=== PATIENT | female | born 1970 | race Caucasian/White ===

== ENCOUNTER 2018-05-08 20:52 | Inpatient (IN) | END 2018-05-25 21:39 | DRG 228 ==

== ENCOUNTER 2018-06-22 09:53 | Inpatient (IN) | payer OTHER ==
[~2018-06-22] VITALS: Ht 152.4 cm; Wt 79.6 kg
[~2018-06-22 09:53] MED LIST: AMOX1TAB10 PO; ASPI-817 PO; GLIP10TA14 PO; LISI10TA2 PO; METF100010 PO; PROM5SYR2 PO
[2018-06-22] MEDS ORDERED: ONDANSETRON 4 MG INJ IV STA ×2 (11:50→18:06)
[2018-06-22] MEDS ORDERED: POTASSIUM CHLORIDE (SR) 20 MEQ TAB PO STA (14:54)
[2018-06-22] MEDS ORDERED: LEVOFLOXACIN 750MG/D5W (PMX) 150 ML IVPB STA (14:54)
[2018-06-22] MEDS ORDERED: SODIUM CHLORIDE 0.9% 1L BAG IV* STA (14:54)
[2018-06-22] MEDS ORDERED: POTASSIUM CHLORIDE 100 ML IVPB ONE (15:00)
[2018-06-22] MEDS ORDERED: MAGNESIUM SULFATE 1 GM/D5W 100 ML IVPB ONE (16:00)
--- NOTE | 2018-06-22 16:28 | ERD ---
ER Documentation Chief Complaint Chief Complaint NAUSEA AND VOMITING X 4 DAYS HPI This is a 48-year-old female presents for evaluation of nausea, vomiting as well as a cough. She states that she was recently diagnosed with a pneumonia, however she is not on antibiotics, she denies any chest pain or shortness of breath, but she does have a recent history of a CABG 1 month ago. States that she has generally been feeling unwell, she denies any urinary symptoms. ROS All systems reviewed and are negative except as per history of present illness. Medications Home Meds Reported Medications Metformin Hcl* (Metformin Hcl*) 1,000 Mg Tablet, 1000 MG PO WITH BREAKFAST DINNE, #60 TAB 05/08/18 Amoxicillin/Potassium Clav (Amox-Clav 875-125 mg Tablet) 875-125 mg Tab, 1 TAB PO BID, #20 TAB 05/08/18 Lisinopril* (Lisinopril*) 10 Mg Tablet, 10 MG PO DAILY, #30 TAB 05/08/18 Aspirin* (Aspirin* EC) 81 Mg Tablet.dr, 81 MG PO DAILY, TAB 05/08/18 Glipizide* (Glipizide*) 10 Mg Tablet, 20 MG PO BID, TAB 05/08/18 Promethazine HCl/Codeine (Prometh-Codein 6.25-10 mg/5 ml) 5 Ml Syrup, 5 ML PO Q6 PRN for COUGH 05/08/18 Allergies Allergies: Coded Allergies: No Known Allergy (Unverified , 05/08/18) PMhx/Soc History of Surgery: Yes (recent cardiac cath. and CABG x 3) Anesthesia Reaction: No Hx Neurological Disorder: Yes Hx Respiratory Disorders: Yes (Hospital acquired PNA; SOB) Hx Cardiac Disorders: Yes (HTN;NSTEMI w/ 3 vessels CAD; acute diastolic heart failure) Hx Psychiatric Problems: No Hx Miscellaneous Medical Probl: Yes (Htn, DM, obesity) Hx Alcohol Use: No Hx Substance Use: No Hx Tobacco Use: Yes Smoking Status: Former smoker Physical Exam Vitals Vital Signs Date Temp Pulse Resp B/P (MAP) Pulse Ox O2 O2 Flow FiO2 Time Delivery Rate 06/22/18 91 132/81 100 Room Air 15:45 (98) 06/22/18 97 149/100 100 Room Air 14:00 (116) 06/22/18 92 18 106/66 93 Room Air 13:00 (79) 06/22/18 98.3 99 18 137/77 100 09:56 (97) Physical Exam Const: Uncomfortable appearing Head: Atraumatic Eyes: Normal Conjunctiva ENT: Normal External Ears, Nose and Mouth. Neck: Full range of motion. No meningismus. Resp: Clear to auscultation bilaterally Cardio: Regular rate and rhythm, no murmurs Abd: Soft, mild epigastric tenderness, non distended. Normal bowel sounds Skin: No petechiae or rashes Back: No midline or flank tenderness Ext: No cyanosis, or edema Neur: Awake and alert Psych: Normal Mood and Affect Result Diagram: 06/22/18 1231 06/22/18 1415 Results 24 hrs Laboratory Tests Test 06/22/18 12:25 06/22/18 12:31 06/22/18 13:15 06/22/18 14:15 Urine Color RED Urine Clarity SLIGHTLY CLOUDY Urine pH 8.0 Urine Specific 1.016 [place] Urine Ketones TRACE mg/dL Urine Nitrite NEGATIVE mg/dL Urine Bilirubin NEGATIVE mg/dL Urine Urobilinogen NEGATIVE mg/dL Urine Leukocyte 1+ Rand/ul Esterase Urine Microscopic 2 /HPF RBC Urine Microscopic 36 /HPF WBC Urine Squamous MANY /HPF Epithelial Cells Urine Bacteria FEW /HPF Urine Hemoglobin NEGATIVE mg/dL Urine Glucose 3+ mg/dL Urine Total 2+ mg/dl Protein White Blood Count 8.2 10^3/ul Red Blood Count 4.61 10^6/ul Hemoglobin 12.1 g/dl Hematocrit 37.0 % Mean Corpuscular 80.3 fl Volume Mean Corpuscular 26.2 pg Hemoglobin Mean Corpuscular 32.7 g/dl Hemoglobin Concent Red Cell 13.5 % Distribution Width Platelet Count 620 10^3/UL Mean Platelet 9.8 fl Volume Immature 0.500 % Granulocytes % Neutrophils % 71.6 % Lymphocytes % 20.9 % Monocytes % 6.6 % Eosinophils % 0.2 % Basophils % 0.2 % Nucleated Red 0.0 /100WBC Blood Cells % Immature 0.040 10^3/ul Granulocytes # Neutrophils # 5.9 10^3/ul Lymphocytes # 1.7 10^3/ul Monocytes # 0.5 10^3/ul Eosinophils # 0.0 10^3/ul Basophils # 0.0 10^3/ul Nucleated Red 0.0 10^3/ul Blood Cells # Prothrombin Time 13.7 Sec Prothrombin Time 1.1 Ratio INR International 1.04 Normalized Ratio Sodium Level 135 mmol/L Potassium Level 2.4 mmol/L Chloride Level 91 mmol/L Carbon Dioxide 34 mmol/L Level Anion Gap 10 Blood Urea 6 mg/dl Nitrogen Creatinine 0.45 mg/dl Est Glomerular > 60 mL/min Filtrat Rate mL/min Glucose Level 434 mg/dl Calcium Level 8.9 mg/dl Total Bilirubin 0.5 mg/dl Direct Bilirubin 0.00 mg/dl Indirect Bilirubin 0.5 mg/dl Aspartate Amino 48 IU/L Transf (AST/SGOT) Alanine 29 IU/L Aminotransferase ( ALT/SGPT) Alkaline 177 IU/L Phosphatase Troponin I 0.059 ng/ml Total Protein 7.4 g/dl Albumin 3.7 g/dl Globulin 3.70 g/dl Albumin/Globulin 1.00 Ratio Lipase 146 U/L Test 06/22/18 16:03 POC Venous Lactate 1.9 mmol/L Current Medications Medications Dose Sig/Pooja Start Time Status Last (Trade) Ordered Route PRN Stop Time Admin Dose Reason Admin Ondansetron 4 mg ONCE STAT 06/22/18 DC 06/22/18 HCl (Zofran IV 11:50 06/22/18 12:41 Inj) 11:52 150 ml @ ONCE STAT 06/22/18 DC 06/22/18 Levofloxacin/ 100 mls/hr IVPB 14:54 06/22/18 15:18 Dextrose 16:23 Potassium 40 meq ONCE STAT 06/22/18 DC 06/22/18 Chloride PO 14:54 06/22/18 15:17 (Klor-Con 20) 14:59 Potassium 100 ml @ ONCE ONCE 06/22/18 06/22/18 Chloride 50 mls/hr IVPB 15:00 06/22/18 15:18 16:59 Sodium 2,180 ml BOLUS OVER 2 06/22/18 DC 06/22/18 Chloride HOURS STAT 14:54 06/22/18 15:27 (NS) IV* 14:59 Magnesium 100 ml @ ONCE ONCE 06/22/18 Sulfate/ 100 mls/hr IVPB 16:00 06/22/18 Dextrose 16:59 Procedures/MDM This is a 48-year-old female presents for evaluation of nausea and vomiting and cough. She has had a recent diagnosis of pneumonia, and her chest x-ray did show left lower lobe consolidation. She was noted to be hyperglycemic, also noted to be hypokalemic, and had a positive UA. Given her very low potassium, persistent nausea vomiting I recommended the patient be admitted for IV antibiotics, she has no fever, and no evidence of severe sepsis. She is given a dose of Levaquin, and also repleted on her potassium. She will be admitted to medicine, under Dr. Valles. EKG: Rate/Rhythm: Normal Sinus Rhythm QRS, ST, T-waves: Left ventricular hypertrophy. No changes consistent w/ acute ischemia Impression: No evidence of ischemia or arrhythmia Departure Diagnosis: Primary Impression: Nausea and vomiting Vomiting type: unspecified Vomiting Intractability: unspecified Qualified Codes: R11.2 - Nausea with vomiting, unspecified Additional Impression: Pneumonia Pneumonia type: due to unspecified organism Laterality: unspecified laterality Lung location: lower lobe of lung Qualified Codes: J18.1 - Lobar pneumonia, unspecified organism Condition: Stable RAYRAY LEWIS MD Jun 22, 2018 16:28
[2018-06-22] MEDS ORDERED: ATOR40TA68 PO (16:33)
[2018-06-22] MEDS ORDERED: CLOP75TA19 PO (16:34)
[2018-06-22] MEDS ORDERED: FAMO20TA18 PO (16:34)
[2018-06-22] MEDS ORDERED: INSU100I33 SC (16:35)
[2018-06-22] MEDS ORDERED: NITR0.4T39 SL (16:35)
[2018-06-22] MEDS ORDERED: METO-448 PO (16:35)
[2018-06-22] MEDS ORDERED: INSU100I35 SQ (16:37)
[2018-06-22] MEDS ORDERED: HYDROCODONE/APAP (5/325) TAB PO PRN (18:30)
[2018-06-22] MEDS ORDERED: ACETAMINOPHEN 325 MG TAB PO PRN (18:30)
[2018-06-22] MEDS ORDERED: NITROGLYCERIN (SL) 0.4 MG TAB SL PRN (18:30)
[2018-06-22] MEDS ORDERED: NACL 0.9% 3 ML SYG IV SCH (18:30)
[2018-06-22] MEDS ORDERED: DOCUSATE SODIUM 100 MG CAP PO PRN (18:30)
[2018-06-22] MEDS ORDERED: ZOLPIDEM 5 MG TAB PO PRN (18:30)
[2018-06-22] MEDS ORDERED: morphine 2 MG INJ IV PRN (18:30)
[2018-06-22] MEDS: POTASSIUM CHLORIDE 40 MEQ in SOD CHLORIDE 0.9% 1,000 ML IV SCH (18:30)
[2018-06-22] MEDS ORDERED: ONDANSETRON 4 MG INJ IV PRN (18:30)
--- NOTE | 2018-06-22 18:46 | HP ---
Date/Time of Note Date/Time of Note DATE: 06/22/18 TIME: 18:39 Assessment/Plan VTE Prophylaxis SCD applied (from Nsg): Yes Pharmacological prophylaxis: other Lines/Catheters IV Catheter Type (from Nrsg): Saline Lock Assessment/Plan Hospital Course 1. Intractable nausea vomiting likely secondary to UTI/pneumonia and/or diabetic gastroparesis IV antibiotics with Rocephin and azithromycin Trial of clear liquid diet Insulin for optimized glucose Zofran IV fluids 2. Severe hypokalemia Replete with IV fluids 3. UTI Rocephin Urine culture 4. Pneumonia Rocephin and azithromycin 5. Diabetes-uncontrolled Scheduled insulin and sliding scale Check A1c 6. Hypertension Continue home meds 7. Coronary disease status post CABG Continue home aspirin, Plavix, metoprolol and statin 8. Obesity Lifestyle changes Prophylaxis: SCDs Result Diagram: 06/22/18 1231 06/22/18 1415 Results 24hrs Laboratory Tests Test 06/22/18 12:25 06/22/18 12:31 06/22/18 13:15 06/22/18 14:15 Urine Color RED Urine Clarity SLIGHTLY CLOUDY A Urine pH 8.0 Urine Specific 1.016 [place] Urine Ketones TRACE A Urine Nitrite NEGATIVE Urine Bilirubin NEGATIVE Urine Urobilinogen NEGATIVE Urine Leukocyte 1+ H Esterase Urine Microscopic 2 RBC Urine Microscopic 36 H WBC Urine Squamous MANY A Epithelial Cells Urine Bacteria FEW A Urine Hemoglobin NEGATIVE Urine Glucose 3+ H Urine Total 2+ H Protein White Blood Count 8.2 # Red Blood Count 4.61 # Hemoglobin 12.1 # Hematocrit 37.0 # Mean Corpuscular 80.3 L Volume Mean Corpuscular 26.2 L Hemoglobin Mean Corpuscular 32.7 Hemoglobin Concent Red Cell 13.5 Distribution Width Platelet Count 620 H Mean Platelet 9.8 Volume Immature 0.500 H Granulocytes % Neutrophils % 71.6 Lymphocytes % 20.9 Monocytes % 6.6 Eosinophils % 0.2 Basophils % 0.2 Nucleated Red 0.0 Blood Cells % Immature 0.040 H Granulocytes # Neutrophils # 5.9 Lymphocytes # 1.7 Monocytes # 0.5 Eosinophils # 0.0 Basophils # 0.0 Nucleated Red 0.0 Blood Cells # Prothrombin Time 13.7 Prothrombin Time 1.1 Ratio INR International 1.04 Normalized Ratio Sodium Level 135 Potassium Level 2.4 *L Chloride Level 91 L Carbon Dioxide 34 H Level Anion Gap 10 Blood Urea 6 L Nitrogen Creatinine 0.45 Est Glomerular > 60 Filtrat Rate mL/min Glucose Level 434 *H Calcium Level 8.9 Total Bilirubin 0.5 Direct Bilirubin 0.00 Indirect Bilirubin 0.5 Aspartate Amino 48 H Transf (AST/SGOT) Alanine 29 Aminotransferase ( ALT/SGPT) Alkaline 177 H Phosphatase Troponin I 0.059 Total Protein 7.4 Albumin 3.7 Globulin 3.70 H Albumin/Globulin 1.00 Ratio Lipase 146 Test 06/22/18 16:03 06/22/18 17:07 06/22/18 18:04 POC Venous Lactate 1.9 1.4 Bedside Glucose 370 H HPI/ROS Admit Date/Time Admit Date/Time June 22, 2018 Hx of Present Illness Patient is a 48-year-old female with a history of obesity hypertension, diabetes, coronary disease status post CABG, diastolic heart failure with pulmon sheila hypertension. Patient was recently discharged from acute inpatient rehab where she was being treated for cardiac debility. Patient presents with 5 days of intractable nausea and vomiting as well as productive cough and occasional diarrhea. Patient does report occasional chills but denies any fevers, patient denies any dysuria or urinary frequency. In the ER chest x-ray showed a left lower lobe consolidation, UA was consistent with UTI and patient was hypokalemic with hyperglycemia. Patient has no other complaints at this time. ROS Constitutional: no complaints, improved Eyes: no complaints ENT: no complaints Respiratory: no complaints Cardiovascular: no complaints Gastrointestinal: no complaints, diarrhea, nausea, vomiting Genitourinary: no complaints Musculoskeletal: no complaints Skin: no complaints Neurologic: no complaints Endocrine: no complaints Lymphatic: no complaints Psychological: no complaints, nl mood/affect Immunologic: no complaints PMH/Family/Social Past Medical History Obesity, hypertension, diabetes, CAD, status post CABG, diastolic heart failure, pulmonary hypertension, debility Medications Current Medications IV Flush (NS 3 ml) 3 ml PER PROTOCOL IV ; Start 06/22/18 at 18:30 Ondansetron HCl (Zofran Inj) 4 mg Q6H PRN IV NAUSEA AND/OR VOMITING; Start 06/22/18 at 18:30 Acetaminophen (Tylenol Tab) 650 mg Q6H PRN PO PAIN LEVEL 1-3 OR FEVER; Start 06/22/18 at 18:30 Acetaminophen/ Hydrocodone Bitart ([place] (5/325)) 1 tab Q6H PRN PO MODERATE PAIN LEVEL 4-6; Start 06/22/18 at 18:30 Morphine Sulfate (morphine) 2 mg Q4H PRN IV SEVERE PAIN LEVEL 7-10; Start 06/22 at 18:30 Docusate Sodium (Colace) 100 mg Q12H PRN PO CONSTIPATION; Start 06/22/18 at 18:30 Zolpidem Tartrate (Ambien) 5 mg QHS PRN PO SLEEP; Start 06/22/18 at 18:30 Enoxaparin Sodium (Lovenox) 40 mg DAILY SC ; Start 06/23/18 at 09:00 Potassium Chloride 40 meq/ Sodium Chloride 1,000 ml @ 75 mls/hr [id number] IV ; Start 06/22/18 at 18:30 Ceftriaxone Sodium 50 ml @ 100 mls/hr Q24H IVPB ; Start 06/22/18 at 18:30 Azithromycin 250 ml @ 250 mls/hr Q24H IVPB ; Start 06/22/18 at 19:00 Aspirin (Halfprin) 81 mg DAILY PO ; Start 06/23/18 at 09:00 Atorvastatin Calcium (Lipitor) 40 mg QHS PO ; Start 06/22/18 at 21:00 Clopidogrel Bisulfate (plaVIX) 75 mg DAILY PO ; Start 06/23/18 at 09:00 Famotidine (Pepcid) 20 mg BID PO ; Start 06/22/18 at 21:00 Metoprolol Tartrate (Lopressor) 12.5 mg DAILY PO ; Start 06/23/18 at 09:00 Nitroglycerin (Nitroglycerin (Sl Tab) 0.4 Mg) 1 tab [id number] PRN SL CHEST PAIN; Start 06/22/18 at 18:30 Diagnostic Test (Pha) (Accu-Chek) 1 ea 02 XX ; Start 06/23/18 at 02:00 Insulin Glargine (Lantus) 15 units DAILY@2000 SC ; Start 06/22/18 at 20:00 Insulin Aspart (Novolog Insulin Pen) 5 unit WITH MEALS SC ; Start 06/23/18 at 08:00 Insulin Aspart (Novolog Insulin Pen) NOVOLOG *MILD* ALGORITHM WITH MEALS BEDTIME SC ; Start 06/22/18 at 21:00 Miscellaneous Information 1 ea NOTE XX ; Start 1/3/19 at 19:00 Glucose (Glutose) 15 gm Q15M PRN PO DECREASED GLUCOSE; Start 06/22/18 at 19:00 Glucose (Glutose) 22.5 gm Q15M PRN PO DECREASED GLUCOSE; Start 06/22/18 at 19:00 Dextrose (D50w Syringe) 25 ml Q15M PRN IV DECREASED GLUCOSE; Start 06/22/18 at 19:00 Dextrose (D50w Syringe) 50 ml Q15M PRN IV DECREASED GLUCOSE; Start 06/22/18 at 19:00 Glucagon (Glucagen) 1 mg Q15M PRN IM DECREASED GLUCOSE; Start 06/22/18 at 19:00 Glucose (Glutose) 15 gm Q15M PRN BUCCAL DECREASED GLUCOSE; Start 06/22/18 at 19:00 Coded Allergies: No Known Allergy (Unverified , 06/22/18) Past Surgical History Past Surgical Hx: other Family History Significant Family History: no pertinent family hx Social History Alcohol Use: none Smoking Status: Former smoker Drug Use: none Exam/Review of Systems Vital Signs Vitals Vital Signs Date Temp Pulse Resp B/P (MAP) Pulse Ox O2 O2 Flow FiO2 Time Delivery Rate 06/22/18 98.3 91 18 135/104 100 Room Air 18:10 (114) Exam Constitutional: alert, oriented Respiratory: clear to auscultation Cardiovascular: regular rate and rhythm Gastrointestinal: soft; No distended Musculoskeletal: nl extremities to inspection JUHI CHARLES Jun 22, 2018 18:46
[2018-06-22] MEDS ORDERED: GLUCOSE GEL 15 GRAM TUBE BUCCAL PRN (19:00)
[2018-06-22] MEDS ORDERED: DEXTROSE 50% 50 ML SYRINGE IV PRN ×2 (19:00)
[2018-06-22] MEDS ORDERED: GLUCOSE GEL 15 GRAM TUBE PO PRN ×2 (19:00)
[2018-06-22] MEDS ORDERED: GLUCAGON 1 MG INJ IM PRN (19:00)
[2018-06-22] MEDS: CEFTRIAXONE 1 GM/50 ML (PMX) 50 ML IVPB SCH (20:00)
[2018-06-22] MEDS ORDERED: INSULIN GLARGINE [LANTus] (100 UNITS/ML) SYG SC SCH (20:00)
[2018-06-22] MEDS: ATORVASTATIN 40 MG TAB PO SCH (20:46)
[2018-06-22] MEDS: AZITHROMYCIN 500MG/NS (PMX) 250 ML IVPB SCH (21:01)
[2018-06-22 21:20] VITALS: Ht 152.4 cm; Wt 79.6 kg
[2018-06-22 21:49] VITALS: BP 143/73; PULSE 93; RESP 18
[2018-06-22] MEDS: FAMOTIDINE 20 MG TAB PO SCH (22:52)
[2018-06-22] MEDS: INSULIN ASPART [NOVOLOG] 3 ML PEN SC SCH (22:57)
[2018-06-22 23:52] VITALS: BMI 34.3
[2018-06-23] MEDS ORDERED: METOCLOPRAMIDE 10 MG INJ IV ONE
[2018-06-23] MEDS ORDERED: ACCU-CHEK XX SCH (02:00)
[2018-06-23 02:15] VITALS: BP 101/53; PULSE 90; RESP 18
[2018-06-23] MEDS: POTASSIUM CHLORIDE 40 MEQ in SOD CHLORIDE 0.9% 1,000 ML IV SCH ×2 (02:28→20:57)
[2018-06-23] MEDS ORDERED: INSULIN ASPART [NOVOLOG] 3 ML PEN SC SCH ×3 (07:35→17:35)
[2018-06-23 08:05] VITALS: BP 130/62; PULSE 85; RESP 18
[2018-06-23] MEDS: INSULIN ASPART [NOVOLOG] 3 ML PEN SC SCH ×4 (08:38→21:00)
[2018-06-23] MEDS: ENOXAPARIN 40 MG/0.4 ML SYG SC SCH (08:47)
[2018-06-23] MEDS: METOPROLOL 25 MG TAB PO SCH (08:49)
[2018-06-23] MEDS: CLOPIDOGREL 75 MG TAB PO SCH (08:49)
[2018-06-23] MEDS: ASPIRIN (EC) 81 MG TAB PO SCH (08:49)
[2018-06-23] MEDS: FAMOTIDINE 20 MG TAB PO SCH ×2 (08:49→21:08)
[2018-06-23] MEDS: POTASSIUM CHLORIDE 100 ML IVPB SCH ×2 (08:50→23:02)
[2018-06-23] MEDS ORDERED: NACL 0.9% 3 ML SYG IV SCH (12:00)
[2018-06-23] MEDS: METOCLOPRAMIDE 10 MG INJ IV SCH ×3 (12:30→23:04)
--- NOTE | 2018-06-23 12:42 | PN ---
Date/Time of Note Date/Time of Note DATE: 06/23/18 TIME: 12:35 Assessment/Plan VTE Prophylaxis Risk score (from Ns)>0 risk: 4 SCD applied (from Ns): Yes Pharmacological prophylaxis: LMWH Lines/Catheters IV Catheter Type (from Nrs): Saline Lock Urinary Cath still in place: No Assessment/Plan Hospital Course SUBJECTIVE: Patient continued to feel nauseated. Abdominal pain improved. No episode of vomiting today. Tolerating clear diet. OBJECTIVE: Vital signs-see below PHYSICAL EXAM: Constitutional: Obese female lying in bed comfortably. Psych: nl mood/affect, no complaints Head: atraumatic, normocephalic Eyes: nl conjunctiva, nl sclera ENMT: mucosa pink and moist, nl external ears & nose Neck: non-tender, supple Respiratory: clear to auscultation, normal air movement Cardiovascular: nl pulses, regular rate and rhythm Gastrointestinal: non-tender, soft, bowel sounds active in all 4 quadrants. Musculoskeletal/extremities: Trace nonpitting edema bilateral LEs. Nl extremities to inspection, motor strength equal bilaterally, no focal deficit. Normal pulses,no cyanosis Neurological: Alert oriented 3,nl speech, nl strength Skin: Sternal surgical scar intact. Nl turgor ASSESSMENT/PLAN: 48-year-old female with hypertension, diabetes, CAD, status post CABG, diastolic heart failure, pulmonary hypertension, here with 1 week duration of multiple episodes of nonbilious/nonbloody vomiting. 1.1. Abdominal pain with intractable nausea/vomiting most likely secondary to diabetic gastroparesis versus gastroenteritis. -No diarrhea, fevers -Symptoms improving -Obtain a CAT scan with and without contrast to rule out other etiologies -Add prokinetics -Continue H2 blockers, PRN Zofran -IV fluids -Diabetes management -Advance diet as tolerated 2. Community-acquired pneumonia -Clinically stable. Continue antibiotics 3.GNR UTI -Continue antibiotics and follow final cultures. 4. Coronary artery disease -Status post coronary artery bypass x3 05/15/2018 -cont.DAPT/Statin/BB 5.Diastolic heart failure -Compensated -cont.BB 6. Hyperglycemia with type 2 diabetes. -Poorly controlled -We will continue patient on appropriate insulin regimen. -Carb controlled diet. 7. Pulmonary hypertension with TR -Monitor. -Clinically stable. 8.Hypertension -Continue beta-blockers 9. Dyslipidemia -Continue statin. 10. Obesity. -Weight reduction advised DVT prophylaxis: Marnox PUD prophylaxis: Pepcid CODE STATUS: Full code Diet: Clear diet Disposition: Continue current management. Follow-up CT findings. Await for clinical improvement and slow diet advancement. Patient was seen in collaboration with . Result Diagram: 06/23/18 0515 06/23/18 0515 Results 24hrs Laboratory Tests Test 06/22/18 13:15 06/22/18 14:15 06/22/18 16:03 06/22/18 17:07 Prothrombin Time 13.7 Prothrombin Time Ratio 1.1 INR International 1.04 Normalized Ratio Sodium Level 135 Potassium Level 2.4 *L Chloride Level 91 L Carbon Dioxide Level 34 H Anion Gap 10 Blood Urea Nitrogen 6 L Creatinine 0.45 Est Glomerular Filtrat > 60 Rate mL/min Glucose Level 434 *H Calcium Level 8.9 Total Bilirubin 0.5 Direct Bilirubin 0.00 Indirect Bilirubin 0.5 Aspartate Amino 48 H Transf (AST/SGOT) Alanine 29 Aminotransferase (ALT/SG PT) Alkaline Phosphatase 177 H Troponin I 0.059 Total Protein 7.4 Albumin 3.7 Globulin 3.70 H Albumin/Globulin Ratio 1.00 Lipase 146 POC Venous Lactate 1.9 Bedside Glucose 370 H Test 06/22/18 18:04 06/22/18 19:48 06/22/18 21:46 06/22/18 22:20 POC Venous Lactate 1.4 Bedside Glucose 350 H 341 H Lactic Acid Level 1.4 Test 06/23/18 02:24 06/23/18 05:15 06/23/18 08:34 06/23/18 12:11 Bedside Glucose 258 H 237 H 128 White Blood Count 8.6 Red Blood Count 3.75 L Hemoglobin 9.9 L Hematocrit 29.9 L Mean Corpuscular Volume 79.7 L Mean Corpuscular 26.4 L Hemoglobin Mean Corpuscular 33.1 Hemoglobin Concent Red Cell Distribution 13.3 Width Platelet Count 464 #H Mean Platelet Volume 9.6 Immature Granulocytes % 0.700 H Neutrophils % 66.2 Lymphocytes % 25.8 Monocytes % 6.4 Eosinophils % 0.5 Basophils % 0.4 Nucleated Red Blood 0.0 Cells % Immature Granulocytes # 0.060 H Neutrophils # 5.7 Lymphocytes # 2.2 Monocytes # 0.6 Eosinophils # 0.0 Basophils # 0.0 Nucleated Red Blood 0.0 Cells # Sodium Level 140 Potassium Level 2.6 *L Chloride Level 98 Carbon Dioxide Level 32 H Anion Gap 10 Blood Urea Nitrogen 5 L Creatinine 0.52 Est Glomerular Filtrat > 60 Rate mL/min Glucose Level 233 #H Hemoglobin A1c 9.3 H Calcium Level 8.4 Phosphorus Level 2.9 Magnesium Level 1.6 L Exam/Review of Systems Vital Signs Vitals Vital Signs Date Temp Pulse Resp B/P (MAP) Pulse Ox O2 O2 Flow FiO2 Time Delivery Rate 06/23/18 98.4 85 18 130/62 98 08:05 (84) 06/22/18 Room Air 21:12 Intake and Output 06/22/18 06/22/18 06/23/18 1515:00 23:00 07:00 IntakeIntake Total 350 ml 225 ml BalanceBalance 350 ml 225 ml Medications Medications Current Medications Ondansetron HCl (Zofran Inj) 4 mg Q6H PRN IV NAUSEA AND/OR VOMITING; Start 06/22/18 at 18:30 Acetaminophen (Tylenol Tab) 650 mg Q6H PRN PO PAIN LEVEL 1-3 OR FEVER; Start 06/22/18 at 18:30 Acetaminophen/ Hydrocodone Bitart ([place] (5/325)) 1 tab Q6H PRN PO MODERATE PAIN LEVEL 4-6; Start 06/22/18 at 18:30 Morphine Sulfate (morphine) 2 mg Q4H PRN IV SEVERE PAIN LEVEL 7-10; Start 06/22/18 at 18:30 Docusate Sodium (Colace) 100 mg Q12H PRN PO CONSTIPATION; Start 06/22/18 at 18:30 Zolpidem Tartrate (Ambien) 5 mg QHS PRN PO SLEEP; Start 06/22/18 at 18:30 Enoxaparin Sodium (Lovenox) 40 mg DAILY SC Last administered on 06/23/18at 08:47; Admin Dose 40 MG; Start 06/23/18 at 09:00 Potassium Chloride 40 meq/ Sodium Chloride 1,000 ml @ 75 mls/hr [id number] IV Last administered on 06/23/18at 02:28; Admin Dose 75 MLS/HR; Start 06/22/18 at 18:30 Ceftriaxone Sodium 50 ml @ 100 mls/hr Q24H IVPB Last administered on 06/22/18at 20:00; Admin Dose 100 MLS/HR; Start 06/22/18 at 18:30 Azithromycin 250 ml @ 250 mls/hr Q24H IVPB Last administered on 06/22/18at 21:01; Admin Dose 250 MLS/HR; Start 06/22/18 at 19:00 Aspirin (Halfprin) 81 mg DAILY PO Last administered on 06/23/18 08:49; Admin Dose 81 MG; Start 06/23/18 at 09:00 Atorvastatin Calcium (Lipitor) 40 mg QHS PO Last administered on 06/22/18at 20:46; Admin Dose 40 MG; Start 06/22/18 at 21:00 Clopidogrel Bisulfate (plaVIX) 75 mg DAILY PO Last administered on 06/23/18 08:49; Admin Dose 75 MG; Start 06/23/18 at 09:00 Famotidine (Pepcid) 20 mg BID PO Last administered on 06/23/18 08:49; Admin Dose 20 MG; Start 06/22/18 at 21:00 Metoprolol Tartrate (Lopressor) 12.5 mg DAILY PO Last administered on 06/23/18at 08:49; Admin Dose 12.5 MG; Start 06/23/18 at 09:00 Nitroglycerin (Nitroglycerin (Sl Tab) 0.4 Mg) 1 tab [id number] PRN SL CHEST PAIN; Start 06/22/18 at 18:30 Miscellaneous Information 1 ea NOTE XX ; Start 06/22/18 at 19:00 Potassium Chloride 100 ml @ 50 mls/hr Q2H IVPB Last administered on 06/23/18at 08:50; Admin Dose 50 MLS/HR; Start 06/23/18 at 07:00; Stop 06/23/18 at 12:59 IV Flush (NS 3 ml) 3 ml PER PROTOCOL IV ; Start 06/23/18 at 12:00 NADEEN DAMON NP Jun 23, 2018 12:42
[2018-06-23] MEDS ORDERED: DEXTROSE 50% 50 ML SYRINGE IV PRN ×2 (13:00)
[2018-06-23] MEDS ORDERED: GLUCAGON 1 MG INJ IM PRN (13:00)
[2018-06-23] MEDS ORDERED: GLUCOSE GEL 15 GRAM TUBE PO PRN ×2 (13:00)
[2018-06-23] MEDS ORDERED: GLUCOSE GEL 15 GRAM TUBE BUCCAL PRN (13:00)
[2018-06-23] MEDS ORDERED: MAGNESIUM SULFATE 2 GM/50 ML 50 ML IVPB ONE (13:30)
[2018-06-23] MEDS ORDERED: morphine LIQ (10 MG/5 ML) CUP PO PRN (15:00)
[2018-06-23] MEDS: CEFTRIAXONE 1 GM/50 ML (PMX) 50 ML IVPB SCH (19:33)
[2018-06-23] MEDS ORDERED: INSULIN GLARGINE [LANTus] (100 UNITS/ML) SYG SC SCH (20:00)
[2018-06-23 20:20] VITALS: BP 127/64; PULSE 93; RESP 18
[2018-06-23 20:30] VITALS: BP 107/61; PULSE 87; RESP 18
[2018-06-23] MEDS: AZITHROMYCIN 500MG/NS (PMX) 250 ML IVPB SCH (21:00)
[2018-06-23] MEDS: ATORVASTATIN 40 MG TAB PO SCH (21:08)
[2018-06-23] MEDS: INSULIN GLARGINE [LANTus] (100 UNITS/ML) SYG SC SCH (21:40)
[2018-06-24] MEDS: POTASSIUM CHLORIDE 100 ML IVPB SCH ×2 (00:13→02:48)
[2018-06-24] MEDS: ACCU-CHEK XX SCH (02:00)
[2018-06-24 02:25] VITALS: BP 118/68; PULSE 87; RESP 18
[2018-06-24] MEDS: METOCLOPRAMIDE 10 MG INJ IV SCH ×3 (05:54→17:33)
[2018-06-24] MEDS: INSULIN ASPART [NOVOLOG] 3 ML PEN SC SCH ×7 (07:35→20:06)
[2018-06-24 08:11] VITALS: BP 142/73; PULSE 91; RESP 18
[2018-06-24] MEDS: ENOXAPARIN 40 MG/0.4 ML SYG SC SCH (08:30)
[2018-06-24] MEDS: CLOPIDOGREL 75 MG TAB PO SCH (08:31)
[2018-06-24] MEDS: METOPROLOL 25 MG TAB PO SCH (08:31)
[2018-06-24] MEDS: FAMOTIDINE 20 MG TAB PO SCH ×2 (08:31→20:04)
[2018-06-24] MEDS: ASPIRIN (EC) 81 MG TAB PO SCH (08:31)
[2018-06-24] MEDS: POTASSIUM CHLORIDE 40 MEQ in SOD CHLORIDE 0.9% 1,000 ML IV SCH ×2 (10:30→23:50)
[2018-06-24] MEDS ORDERED: SOD CHLORIDE 0.9% 100 ML ONE (11:09)
[2018-06-24] MEDS ORDERED: IOHEXOL 300MG/ML 150 ML BTL ONE (11:09)
--- NOTE | 2018-06-24 12:17 | PN ---
Date/Time of Note Date/Time of Note DATE: 06/24/18 TIME: 12:16 Assessment/Plan VTE Prophylaxis Risk score (from Nsg)>0 risk: 4 SCD applied (from Nsg): Yes Pharmacological prophylaxis: LMWH Lines/Catheters IV Catheter Type (from Nrsg): Peripheral IV Urinary Cath still in place: No Assessment/Plan Hospital Course SUBJECTIVE: No further nausea. She is tolerating a clear diet. No abdominal pain. OBJECTIVE: Vital signs-see below PHYSICAL EXAM: Constitutional: Obese female lying in bed comfortably. Psych: nl mood/affect, no complaints Head: atraumatic, normocephalic Eyes: nl conjunctiva, nl sclera ENMT: mucosa pink and moist, nl external ears & nose Neck: non-tender, supple Respiratory: clear to auscultation, normal air movement Cardiovascular: nl pulses, regular rate and rhythm Gastrointestinal: non-tender, soft, bowel sounds active in all 4 quadrants. Musculoskeletal/extremities: Trace nonpitting edema bilateral LEs. Nl extremities to inspection, motor strength equal bilaterally, no focal deficit. Normal pulses,no cyanosis Neurological: Alert oriented 3,nl speech, nl strength Skin: Sternal surgical scar intact. Nl turgor ASSESSMENT/PLAN: 48-year-old female with hypertension, diabetes, CAD, status post CABG, diastolic heart failure, pulmonary hypertension, here with 1 week duration of multiple episodes of nonbilious/nonbloody vomiting. 1. Abdominal pain with intractable nausea/vomiting most likely secondary to diabetic gastroparesis versus gastroenteritis. -Symptoms significantly improved after addition of prokinetic. CT abdomen pending. -Continue H2 blockers, Reglan [id number], PRN Zofran -IV fluids -Diabetes management -We will advance diet pending CT result. 2. Community-acquired pneumonia -Clinically stable. Continue antibiotics 3.E. coli UTI -On appropriate antimicrobials. 4. Coronary artery disease -Status post coronary artery bypass x3 05/15/2018 -cont.DAPT/Statin/BB 5.Diastolic heart failure -Compensated -cont.BB 6. Poorly controlled type 2 diabetes. -Stable glycemic trends in a controlled environment. Continue current insulin regimen. -Carb controlled diet. 7. Pulmonary hypertension with TR -Monitor. -Clinically stable. 8.Hypertension -Continue beta-blockers 9. Dyslipidemia -Continue statin. 10. Obesity. -Weight reduction advised DVT prophylaxis: Lovenox PUD prophylaxis: Pepcid CODE STATUS: Full code Diet: Clear diet Disposition: Follow-up CT findings and diet advancement per CT result. Patient was seen in collaboration with . Result Diagram: 06/24/187 06/24/187 Results 24hrs Laboratory Tests Test 06/23/18 17:42 06/23/18 20:44 06/23/18 21:35 06/24/18 04:47 Bedside Glucose 147 91 110 White Blood Count 8.0 Red Blood Count 3.82 L Hemoglobin 10.2 L Hematocrit 30.9 L Mean Corpuscular Volume 80.9 L Mean Corpuscular 26.7 L Hemoglobin Mean Corpuscular 33.0 Hemoglobin Concent Red Cell Distribution 13.7 Width Platelet Count 450 H Mean Platelet Volume 9.6 Immature Granulocytes % 0.900 H Neutrophils % 55.4 Lymphocytes % 34.1 Monocytes % 7.0 Eosinophils % 2.0 Basophils % 0.6 Nucleated Red Blood 0.0 Cells % Immature Granulocytes # 0.070 H Neutrophils # 4.4 Lymphocytes # 2.7 Monocytes # 0.6 Eosinophils # 0.2 Basophils # 0.1 Nucleated Red Blood 0.0 Cells # Sodium Level 142 Potassium Level 3.2 L Chloride Level 104 Carbon Dioxide Level 29 Anion Gap 9 Blood Urea Nitrogen 3 L Creatinine 0.47 Est Glomerular Filtrat > 60 Rate mL/min Glucose Level 88 # Hemoglobin A1c 9.5 H Calcium Level 8.7 Magnesium Level 2.2 Test 06/24/18 08:00 06/24/18 08:28 Urine Test NEGATIVE Bedside Glucose 104 Exam/Review of Systems Vital Signs Vitals Vital Signs Date Temp Pulse Resp B/P (MAP) Pulse Ox O2 O2 Flow FiO2 Time Delivery Rate 06/24/18 98.3 91 18 142/73 98 Room Air 08:11 (96) Intake and Output 06/23/18 06/23/18 06/24/18 1515:00 23:00 07:00 IntakeIntake Total 1240 ml 670 ml 200 ml BalanceBalance 1240 ml 670 ml 200 ml Medications Medications Current Medications Ondansetron HCl (Zofran Inj) 4 mg Q6H PRN IV NAUSEA AND/OR VOMITING; Start 06/22/18 at 18:30 Acetaminophen (Tylenol Tab) 650 mg Q6H PRN PO PAIN LEVEL 1-3 OR FEVER; Start 06/22/18 at 18:30 Acetaminophen/ Hydrocodone Bitart ([place] (5/325)) 1 tab Q6H PRN PO MODERATE PAIN LEVEL 4-6; Start 06/22/18 at 18:30 Docusate Sodium (Colace) 100 mg Q12H PRN PO CONSTIPATION; Start 06/22/18 at 18:30 Zolpidem Tartrate (Ambien) 5 mg QHS PRN PO SLEEP; Start 06/22/18 at 18:30 Enoxaparin Sodium (Lovenox) 40 mg DAILY SC Last administered on 06/24/18 08:30; Admin Dose 40 MG; Start 06/23/18 at 09:00 Potassium Chloride 40 meq/ Sodium Chloride 1,000 ml @ 75 mls/hr [id number] IV Last administered on 06/23/18 20:57; Admin Dose 75 MLS/HR; Start 06/22/18 at 18:30 Ceftriaxone Sodium 50 ml @ 100 mls/hr Q24H IVPB Last administered on 06/23/18 19:33; Admin Dose 100 MLS/HR; Start 06/22/18 at 18:30 Azithromycin 250 ml @ 250 mls/hr Q24H IVPB Last administered on 06/23/18 21 :00; Admin Dose 250 MLS/HR; Start 06/22/18 at 19:00 Aspirin (Halfprin) 81 mg DAILY PO Last administered on 06/24/18 08:31; Admin Dose 81 MG; Start 06/23/18 at 09:00 Atorvastatin Calcium (Lipitor) 40 mg QHS PO Last administered on 06/23/18 21:08; Admin Dose 40 MG; Start 06/22/18 at 21:00 Clopidogrel Bisulfate (plaVIX) 75 mg DAILY PO Last administered on 06/24/18 08:31; Admin Dose 75 MG; Start 06/23/18 at 09:00 Famotidine (Pepcid) 20 mg BID PO Last administered on 06/24/18 08:31; Admin Dose 20 MG; Start 06/22/18 at 21:00 Metoprolol Tartrate (Lopressor) 12.5 mg DAILY PO Last administered on 06/24/18 08:31; Admin Dose 12.5 MG; Start 06/23/18 at 09:00 Nitroglycerin (Nitroglycerin (Sl Tab) 0.4 Mg) 1 tab [id number] PRN SL CHEST PAIN; Start 06/22/18 at 18:30 Miscellaneous Information 1 ea NOTE XX ; Start 06/22/18 at 19:00 IV Flush (NS 3 ml) 3 ml PER PROTOCOL IV ; Start 06/23/18 at 12:00 Metoclopramide HCl (Reglan) 10 mg Q6 IV Last administered on 06/24/18at 05:54; Admin Dose 10 MG; Start 06/23/18 at 12:30 Diagnostic Test (Pha) (Accu-Chek) 1 ea 02 XX ; Start 06/24/18 at 02:00 Insulin Glargine (Lantus) 24 units DAILY@2000 SC Last administered on 06/23/18at 21:40; Admin Dose 24 UNITS; Start 06/23/18 at 20:00 Insulin Aspart (Novolog Insulin Pen) 8 unit WITH MEALS SC Last administered on 06/23/18at 17:45; Admin Dose 8 UNIT; Start 06/23/18 at 17:35 Insulin Aspart (Novolog Insulin Pen) NOVOLOG *MILD* ALGORITHM WITH MEALS BEDTIME SC Last administered on 06/23/18at 17:46; Admin Dose 1 UNIT; Start 9 at 18:05 Miscellaneous Information 1 ea NOTE XX ; Start 06/23/18 at 13:00 Glucose (Glutose) 15 gm Q15M PRN PO DECREASED GLUCOSE; Start 06/23/18 at 13:00 Glucose (Glutose) 22.5 gm Q15M PRN PO DECREASED GLUCOSE; Start 06/23/18 at 13:00 Dextrose (D50w Syringe) 25 ml Q15M PRN IV DECREASED GLUCOSE; Start 06/23/18 at 13:00 Dextrose (D50w Syringe) 50 ml Q15M PRN IV DECREASED GLUCOSE; Start 06/23/18 at 1 3:00 Glucagon (Glucagen) 1 mg Q15M PRN IM DECREASED GLUCOSE; Start 06/23/18 at 13:00 Glucose (Glutose) 15 gm Q15M PRN BUCCAL DECREASED GLUCOSE; Start 06/23/18 at 13:00 Morphine Sulfate (morphine) 6 mg Q4H PRN PO SEVERE PAIN LEVEL 7-10; Start 06/23/18 at 15:00 NADEEN DAMON NP Jun 24, 2018 12:17
[2018-06-24] MEDS ORDERED: POTASSIUM CHLORIDE (SR) 10 MEQ TAB PO ONE (12:30)
[2018-06-24 14:00] VITALS: BP 111/64; PULSE 82; RESP 18
[2018-06-24] MEDS: CEFTRIAXONE 1 GM/50 ML (PMX) 50 ML IVPB SCH (17:33)
[2018-06-24] MEDS: AZITHROMYCIN 500MG/NS (PMX) 250 ML IVPB SCH (18:33)
[2018-06-24] MEDS: ATORVASTATIN 40 MG TAB PO SCH (20:04)
[2018-06-24 20:05] VITALS: BP 100/59; PULSE 91; RESP 17
[2018-06-24] MEDS: INSULIN GLARGINE [LANTus] (100 UNITS/ML) SYG SC SCH (20:05)
[2018-06-25] MEDS: METOCLOPRAMIDE 10 MG INJ IV SCH ×2 (00:23→05:06)
[2018-06-25 02:00] VITALS: BP 139/82; PULSE 86; RESP 18
[2018-06-25] MEDS: ACCU-CHEK XX SCH (02:00)
[2018-06-25] MEDS: POTASSIUM CHLORIDE 40 MEQ in SOD CHLORIDE 0.9% 1,000 ML IV SCH (05:11)
[2018-06-25] MEDS: INSULIN ASPART [NOVOLOG] 3 ML PEN SC SCH ×4 (08:00→13:16)
[2018-06-25 08:43] VITALS: BP 138/81; PULSE 89; RESP 18
--- NOTE | 2018-06-25 08:59 | PDOCDIS ---
Discharge Instructions CONDITION [id number] Patient Condition: [id number] Stable HOME CARE INSTRUCTIONS: [id number] Your diet recommendation is: [id number] Carbohydrate controlled diet. FOLLOW UP/APPOINTMENTS Follow-up Plan Follow-up with primary care physician in 1 week. NADEEN DAMON NP Jun 25, 2018 08:59
[2018-06-25] MEDS ORDERED: CIPR500T4 PO (09:03)
[2018-06-25] MEDS ORDERED: METR500T PO (09:03)
[2018-06-25] MEDS ORDERED: Insulin Glargine SC (09:03)
[2018-06-25] MEDS ORDERED: INSU100I33 SC ×2 (09:07→09:10)
[2018-06-25] MEDS ORDERED: METO5TAB58 PO (09:12)
[2018-06-25] MEDS: FAMOTIDINE 20 MG TAB PO SCH (09:13)
[2018-06-25] MEDS: ASPIRIN (EC) 81 MG TAB PO SCH (09:13)
[2018-06-25] MEDS: CLOPIDOGREL 75 MG TAB PO SCH (09:13)
[2018-06-25] MEDS: METOPROLOL 25 MG TAB PO SCH (09:14)
[2018-06-25] MEDS: ENOXAPARIN 40 MG/0.4 ML SYG SC SCH (09:16)
--- NOTE | 2018-06-25 09:21 | DS ---
Date/Time of Note Date/Time of Note DATE: 06/25/18 TIME: 09:17 Discharge Summary Admission/Discharge Info Admit Date/Time Jun 22, 2018 at 16:16 Discharge Date/Time Discharge Diagnosis 1. Diabetic gastroparesis. Stable 2. Possible mild colitis. Stable 3. E. coli UTI. Treated 4. Community acquired pneumonia. Treated 5. Coronary artery disease 6.Diastolic heart failure 7. Poorly controlled type 2 diabetes. 8. Pulmonary hypertension with TR 9.Hypertension 10. Dyslipidemia 11. Obesity. Patient Condition: Stable Procedures 08/2018. Chest x-ray. IMPRESSION: 1. Left lower lung consolidation. 2. Probable small left pleural effusion. 06/24/2018. CT abdomen and pelvis with and without contrast. IMPRESSION: Mildly thickened appearance of the colonic wall may be related to underdistension or mild colitis without obstruction or appendicitis. This is slightly more pronounced in the rectum. Small layering left effusion. Surgical changes of the lower sternum. Atherosclerotic disease is present. Hospital Course 48-year-old female with hypertension, diabetes, CAD, status post CABG, diastolic heart failure, pulmonary hypertension, here with 1 week duration of multiple episodes of nonbilious/nonbloody vomiting. Patient was noted with E. coli UTI and pneumonia, which were managed with appropriate antimicrobials. Patient was given H2 blockers, PRN Zofran, fluids for underlying stomach upset with nausea and vomiting. Patient did respond fairly well. However, with diet advancement, her symptoms recurred. She was noted with hyperglycemia with poorly controlled diabetes and likely patient could have a gastroparesis contributing to her symptoms. At that point, she was treated with Reglan and patient responded well. A CT was unremarkable for acute bowel obstruction or ileus. However, there was a concern of mild colitis. Pat ient was continued on home medication for underlying comorbidities. Patient with no fevers or leukocytosis. She is now tolerating diet and activities well. At this time, we decided to discharge patient on tight control of blood glucose, continuation of low-dose Reglan for gastroparesis, Cipro for continuation of UTI management as outpatient with addition of Flagyl for possible mild colitis that she may have. Approximately 60 minutes was spent on coordinating the discharge on this patient. On day of discharge, patient's labs and vital signs stable. She has been tolerating diet advancement very well. She did not have any nausea, vomiting, abdominal pain, diarrhea or other distress. Patient is eager to be discharged home. Approximately 60 m spent on coordinating the discharge on this patient. Patient was seen in collaboration with . Home Meds Active Scripts Metoclopramide* (Reglan*) 5 Mg Tablet, 5 MG PO AC MEALS for 10 Days, #30 TAB Prov:DAMON,NADEEN V. IT AUDIT MANAGER 06/25/18 Insulin Glargine,Hum.rec.anlog (Basaglar Kwikpen U-100) 100 Unit/1 Ml Insuln.pen, 24 UNIT SC QHS, #1 SYR Provide patient with 30-day supply. Provide #100 test strips, #100 lancets #100 32 gauge pen needles. Blood sugar check frequency before meals meals and at bedtime. Prov:DAMON,NADEEN V. IT AUDIT MANAGER 06/25/18 Metronidazole* (Flagyl*) 500 Mg Tablet, 500 MG PO Q8 for 7 Days, #21 TAB Prov:DAMON,NADEEN V. IT AUDIT MANAGER 06/25/18 Ciprofloxacin Hcl* (Ciprofloxacin Hcl*) 500 Mg Tablet, 500 MG PO BID, #14 TAB Prov:DAMON,NADEEN V. IT AUDIT MANAGER 06/25/18 Reported Medications Insulin Lispro (Humalog Catrachito Kwikpen) 100 Unit/1 Ml Ins.pen.hf, 3 UNIT SQ WITH MEALS 06/22/18 Nitroglycerin* (Nitrostat*) 0.4 Mg Tab.subl, 0.4 MG SL Q5MIN PRN for CHEST PAIN, BOTTLE 06/22/18 Metoprolol Tartrate* (Lopressor*) 25 Mg Tab, 12.5 MG PO DAILY, #60 TAB 06/22/18 Clopidogrel Bisulfate* (Clopidogrel Bisulfate*) 75 Mg Tablet, 75 MG PO DAILY, #30 TAB 06/22/18 Famotidine* (Famotidine*) 20 Mg Tablet, 20 MG PO BID, #60 TAB 06/22/18 Atorvastatin* (Atorvastatin*) 40 Mg Tablet, 40 MG PO QHS, #30 TAB 06/22/18 Aspirin* (Aspirin* EC) 81 Mg Tablet.dr, 81 MG PO DAILY, TAB 05/08/18 Discontinued Reported Medications Insulin Glargine,Hum.rec.anlog (Basaglar Kwikpen U-100) 100 Unit/1 Ml Insuln.pen, 10 UNIT SC QHS, EA 06/22/18 Metformin Hcl* (Metformin Hcl*) 1,000 Mg Tablet, 1000 MG PO WITH BREAKFAST DINNE, #60 TAB 05/08/18 Amoxicillin/Potassium Clav (Amox-Clav 875-125 mg Tablet) 875-125 mg Tab, 1 TAB PO BID, #20 TAB 05/08/18 Lisinopril* (Lisinopril*) 10 Mg Tablet, 10 MG PO DAILY, #30 TAB 05/08/18 Glipizide* (Glipizide*) 10 Mg Tablet, 20 MG PO BID, TAB 05/08/18 Promethazine HCl/Codeine (Prometh-Codein 6.25-10 mg/5 ml) 5 Ml Syrup, 5 ML PO Q6 PRN for COUGH 05/08/18 Follow-up Plan Follow-up with primary care physician in 1 week. Primary Care Provider Not On Staff Doctor Pending Labs Laboratory Tests Test 06/24/18 12:34 06/24/18 17:28 06/24/18 19:55 06/25/18 05:04 Bedside 96 75 135 66 Glucose mg/dL (70-220) mg/dL (70-220) mg/dL (70-220) mg/dL (70-220) Test 06/25/18 05:05 06/25/18 05:33 06/25/18 05:50 06/25/18 08:30 Sodium Level 143 mmol/L (135-144 ) Potassium 3.7 Level mmol/L (3.5-5.1 ) Chloride Level 110 mmol/L (97-110) Carbon Dioxide 27 Level mmol/L (21-31) Anion Gap 6 (5-13) Blood Urea 3 mg/dl (7-20) Nitrogen Creatinine 0.51 mg/dl (0.44-1.0 0) Est Glomerular > 60 Filtrat mL/min (>60) Rate mL/min Glucose Level 75 mg/dl (70-220) Calcium Level 9.2 mg/dl (8.4-10.2 ) Magnesium 1.9 Level mg/dl (1.7-2.5) Bedside 84 107 80 Glucose mg/dL (70-220) mg/dL (70-220) mg/dL (70-220) NADEEN DAMON NP Jun 25, 2018 09:21
[2018-06-25] MEDS ORDERED: METOCLOPRAMIDE 5 MG TAB PO SCH (11:30)
[2018-06-25 15:26] VITALS: BP 96/53; PULSE 86; RESP 18
== END 2018-06-25 16:45 | disposition home or self-care (01) | DRG 73 ==
LOC: E/R 09:53 → PP2 16:16 → CANRESERV 16:43
PROVIDERS: ADMIT Internal Medicine; ATTEND Internal Medicine
DX: E11.43 Type 2 diabetes mellitus with diabetic autonomic (poly)neuropathy (principal); J18.9 Pneumonia, unspecified organism; N39.0 Urinary tract infection, site not specified; I50.32 Chronic diastolic (congestive) heart failure; K31.84 Gastroparesis; K52.9 Noninfective gastroenteritis and colitis, unspecified; I11.0 Hypertensive heart disease with heart failure; I25.2 Old myocardial infarction; I25.10 Atherosclerotic heart disease of native coronary artery without angina pectoris; E87.6 Hypokalemia; E11.65 Type 2 diabetes mellitus with hyperglycemia; I27.20 Pulmonary hypertension, unspecified; E66.9 Obesity, unspecified; Z68.34 Body mass index [BMI] 34.0-34.9, adult; Z87.891 Personal history of nicotine dependence; Z87.01 Personal history of pneumonia (recurrent); Z79.82 Long term (current) use of aspirin; Z95.1 Presence of aortocoronary bypass graft; Z79.4 Long term (current) use of insulin; E78.5 Hyperlipidemia, unspecified; B96.20 Unspecified Escherichia coli [E. coli] as the cause of diseases classified elsewhere
CPT/HCPCS: 71045; 74178; 80048; 80053; 81001; 82962; 83036; 83605; 83690; 83735; 84100; 84484; 84703; 85025; 85610; 87040; 87081; 87086; 93005; 96374; 96375; J0456; J0696; J1650; J1815; J1956; J2405; J2765; J3475; J3480; J7030; Q9967

== ENCOUNTER → 2018-10-19 | Outpatient (CLI) | payer OTHER ==
[~2018-10-19] MED LIST changes: -AMOX1TAB10 PO; +ATOR40TA68 PO; +CIPR500T4 PO; +CLOP75TA19 PO; +FAMO20TA18 PO; -GLIP10TA14 PO; +INSU100I33 SC; +INSU100I35 SQ; -LISI10TA2 PO; -METF100010 PO; +METO-448 PO; +METO5TAB58 PO; +METR500T PO; +NITR0.4T39 SL; -PROM5SYR2 PO
== END | disposition home or self-care (01) ==
LOC: LAB 08:27
PROVIDERS: ATTEND Internal Medicine Interventional Cardiology
DX: I65.22 Occlusion and stenosis of left carotid artery (principal)
CPT/HCPCS: 80048

== ENCOUNTER → 2018-10-24 | Outpatient (CLI) | payer OTHER ==
[~2018-10-24] MED LIST changes: +IOHEXOL 100 ML ONE; +SOD CHLORIDE 0.9% 100 ML ONE
== END | disposition home or self-care (01) ==
LOC: C/S 08:38
PROVIDERS: ATTEND Internal Medicine
DX: I65.22 Occlusion and stenosis of left carotid artery (principal)
CPT/HCPCS: 70498; Q9967; Z7610